=== PATIENT | female | born 1950 | race African-American/Black ===

== ENCOUNTER 2017-01-16 07:59 | Day surgery (SDC) | payer OTHER ==
[2017-01-13 12:08] VITALS: BMI 29.2
[2017-01-16 08:38] VITALS: TEMP 98.3
[2017-01-16] MEDS ORDERED: TOBRAMYCIN/DEXAMETHASONE OPHTH. OINTMENT 1 TUBE ONE ×2 (10:32→10:33)
[2017-01-16] MEDS ORDERED: LIDOCAINE 1%/EPI 1:100000 (50 ML MULTI DOSE VIAL) ONE (10:32)
[2017-01-16] MEDS ORDERED: TETRACAINE 0.5% OPHTH SOLN 2 ML BOTTLE OS ONE (10:36)
[2017-01-16] MEDS ORDERED: MIDAZOLAM HCL 2 MG/2 ML SINGLE DOSE VIAL ONE (10:47)
[2017-01-16] MEDS ORDERED: POVIDONE-IODINE 5% OPHTHALMIC PREP 30 ML SOLUTION OS ONE (10:50)
[2017-01-16] MEDS ORDERED: BSS (NA/CA/MG/K) BALANCED SALT SOLUTION OPHTH SOLN 15 ML BOTTLE OS ONE (10:55)
[2017-01-16] MEDS ORDERED: LIDOCAINE 1%/EPI 1:100000 (50 ML MULTI DOSE VIAL) INF ONE (10:55)
[2017-01-16] MEDS ORDERED: TOBRAMYCIN/DEXAMETHASONE OPHTH. OINTMENT 1 TUBE OS ONE (11:08)
[2017-01-16 13:46] VITALS: BP 121/82; PULSE 83
--- NOTE | 2017-01-16 20:06 | OP ---
DATE OF OPERATION: DATE OF DICTATION: 01/16/2017 SURGEON: Sheila Morgan M.D. PREOPERATIVE DIAGNOSIS: Chalazion left upper lid. POSTOPERATIVE DIAGNOSIS: Chalazion left upper lid. ANESTHESIA: Local. PROCEDURE: Pterygium incision and curettage with biopsy on the left upper lid. DESCRIPTION: Patient was brought to the operating room after placing tetracaine eyedrops. The microscope was swung into position after marking the chalazion from the conjunctival surface, 0.5 mL of 2% lidocaine with epinephrine was injected into the upper lid and pterygium clamp was placed on the large pterygium, and 11 blade was used to perform cruciate incision, and curettage to remove the rest of the material from the cyst and the cyst wall was excised and sent for biopsy. Hemostasis was achieved with pressure, and the eye had Tobradex eye ointment placed on the conjunctival sac, and patient was then transferred to the recovery room in a stable condition having tolerated the procedure well. SHEILA MORGAN M.D. [id number]
--- NOTE | 2017-01-17 12:35 | PATH ---
Surgical Pathology Report Patient Name: HO LARSON [facility]. Rec. #: [id number] /Age/Gender: 1950 (Age: 66) / F Account: [id number] Location: [facility] SURGICAL Taken: 01/16/2017 Received: 01/16/2017 Reported: 01/17/2017 Physicians: Leila Romero M.D. Specimen(s) Received CHALAZION Clinical History Chalazion left upper eyelid Final Diagnosis SOFT TISSUE, LEFT UPPER EYELID, EXCISION: FIBROCONNECTIVE TISSUE WITH ACUTE AND CHRONIC INFLAMMATION WITH ASSOCIATED HISTIOCYTES CONSISTENT WITH CHALAZION. Electronically Signed Wilfrido Sanches M.D. Gross Description Received in formalin labeled "chalazion left upper lid," are 3 shaw soft tissue fragments averaging less than 0.1 cm in greatest dimension. The specimens are submitted in toto in one cassette. /01/16/201701/16/2017
== END 2017-01-16 12:30 | disposition home or self-care (01) ==
LOC: JASU-SURG 07:59
PROVIDERS: ATTEND Ophthalmology
PROC: 08BP0ZZ Excision of Left Upper Eyelid, Open Approach (ICD-10-PCS; principal; 2017-01-16 11:00)
DX: H00.14 Chalazion left upper eyelid (principal)
CPT/HCPCS: 88304-TC

== ENCOUNTER 2018-01-01 07:04 | Day surgery (SDC) | payer OTHER ==
[2017-12-29 09:11] VITALS: BMI 29.2
[~2018-01-01 07:04] MED LIST: BSS (NA/CA/MG/K) BALANCED SALT SOLUTION OPHTH SOLN 15 ML BOTTLE OS ONE; CHONDROITIN SU A/HYALUR SOD 1 KIT IO ONE; EPINEPHrine/PF 1 MG/1 ML (1:1,000) AMPULE SQ ONE; LIDOCAINE HCL 1% PRESERVATIVE FREE - 30ML VIAL IO ONE; POVIDONE-IODINE 5% OPHTHALMIC PREP 30 ML SOLUTION OS ONE; TETRACAINE 0.5% OPHTH SOLN 2 ML BOTTLE OS ONE; TOBRA 0.3%/DEXAMETH 0.1% OPHTHALMIC SUSP 2.5 ML BTL OS ONE
[2018-01-01] MEDS ORDERED: FLURBIPROFEN 0.03% OPHTH SOLN 2.5 ML BOTTLE OS SCH (07:15)
[2018-01-01] MEDS ORDERED: PHENYLEPHRINE 2.5% OPHTH SOLN 15 ML BOTTLE OS SCH (07:15)
[2018-01-01] MEDS ORDERED: MOXIFLOXACIN HCL 0.5% OPHTHALMIC 3 ML BOTTLE OS SCH (07:15)
[2018-01-01] MEDS ORDERED: CYCLOPENTOLATE HCL 1% OPHTH SOLN 2 ML BOTTLE OS SCH (07:15)
[2018-01-01] MEDS ORDERED: FLURBIPROFEN 0.03% OPHTH SOLN 2.5 ML BOTTLE ONE (07:19)
[2018-01-01] MEDS ORDERED: CYCLOPENTOLATE HCL 1% OPHTH SOLN 2 ML BOTTLE ONE (07:19)
[2018-01-01] MEDS ORDERED: TROPICAMIDE 0.5% OPHTHALMIC SOLN 15 ML BOTTLE ONE (07:19)
[2018-01-01] MEDS ORDERED: MOXIFLOXACIN HCL 0.5% OPHTHALMIC 3 ML BOTTLE ONE (07:19)
[2018-01-01] MEDS ORDERED: PHENYLEPHRINE 2.5% OPHTH SOLN 15 ML BOTTLE ONE (07:19)
[2018-01-01] MEDS ORDERED: EPINEPHrine/PF 1 MG/1 ML (1:1,000) AMPULE ONE (07:24)
[2018-01-01] MEDS ORDERED: TOBRA 0.3%/DEXAMETH 0.1% OPHTHALMIC SUSP 2.5 ML BTL ONE (07:24)
[2018-01-01] MEDS ORDERED: TETRACAINE 0.5% OPHTH SOLN 2 ML BOTTLE ONE (07:24)
[2018-01-01] MEDS ORDERED: LIDOCAINE HCL/PF 1% SDV 5ML VIAL ONE (07:24)
[2018-01-01] MEDS ORDERED: POVIDONE-IODINE 5% OPHTHALMIC PREP 30 ML SOLUTION ONE (07:25)
[2018-01-01 07:39] VITALS: TEMP 98.7
[2018-01-01] MEDS ORDERED: TROPICAMIDE 1% OPHTH SOLN 15 ML BOTTLE OS SCH (08:00)
[2018-01-01] MEDS ORDERED: MIDAZOLAM HCL 2 MG/2 ML SINGLE DOSE VIAL ONE (08:13)
[2018-01-01] MEDS ORDERED: TETRACAINE 0.5% OPHTH SOLN 2 ML BOTTLE OS ONE (08:29)
[2018-01-01] MEDS ORDERED: POVIDONE-IODINE 5% OPHTHALMIC PREP 30 ML SOLUTION OS ONE (08:31)
[2018-01-01] MEDS ORDERED: BSS (NA/CA/MG/K) BALANCED SALT SOLUTION OPHTH SOLN 15 ML BOTTLE OS ONE (08:42)
[2018-01-01] MEDS ORDERED: LIDOCAINE HCL 1% PRESERVATIVE FREE - 30ML VIAL IO ONE (08:42)
[2018-01-01] MEDS ORDERED: CHONDROITIN SU A/HYALUR SOD 1 KIT IO ONE (08:42)
[2018-01-01] MEDS ORDERED: EPINEPHrine/PF 1 MG/1 ML (1:1,000) AMPULE SQ ONE (08:49)
[2018-01-01] MEDS ORDERED: TOBRA 0.3%/DEXAMETH 0.1% OPHTHALMIC SUSP 2.5 ML BTL OS ONE (09:04)
[2018-01-01 11:08] VITALS: BP 144/79; PULSE 89
--- NOTE | 2018-01-01 14:01 | OP ---
DATE OF OPERATION: SPECIALIST: Leila Romero MD PREOPERATIVE DIAGNOSIS: Cataract, left eye. POSTOPERATIVE DIAGNOSIS: Cataract, left eye. PROCEDURE: Phacoemulsification of cataract, left eye with in bag placement SN60WF 20.5 diopter IOL. ANESTHESIA: Local. DESCRIPTION OF PROCEDURE: The patient was brought to the operating room, and the left eye was prepped and draped in the usual sterile fashion for ophthalmic surgery. The microscope was swung into position after placing tetracaine eye drops. The 2.75 keratome was used to enter the anterior chamber at approximately the 2 o'clock position after filling the chamber with 0.5 mL of preservative-free lidocaine and Viscoat. Access entry port was made at approximately 4 o'clock position. Cystotome and Utrata forceps were used to make a continuous circular capsulorrhexis. BSS was used to perform hyrodissection and hydrodelineation of the lens nucleus, which was rotated freely. Phacoemulsification was carried out in a mdjzuo-qwe-[id number] technique. IA was used to remove residual cortical material from the capsular bag, which was found to be intact and which was injected SN60WF diopter IOL. The IA was used to remove viscoelastic from the capsular bag and the corneal wounds were hydrated with BSS, which were found to be watertight. Contact lens soaked in Tobradex solution for approximately 10 minutes was then draped on the cornea. The eye was patched and shielded and patient was transferred to the recovery room in a stable condition having tolerated the procedure well. Nathalia [id number]
== END 2018-01-01 11:32 | disposition home or self-care (01) ==
LOC: JASU-SURG 07:04
PROVIDERS: ATTEND Ophthalmology
PROC: 08RK3JZ Replacement of Left Lens with Synthetic Substitute, Percutaneous Approach (ICD-10-PCS; principal; 2018-01-01 08:00)
DX: H26.9 Unspecified cataract (principal)
CPT/HCPCS: 82962

== ENCOUNTER 2018-02-05 06:36 | Day surgery (SDC) | payer OTHER ==
[2018-02-02 10:57] VITALS: BMI 29.2
[~2018-02-05 06:36] MED LIST changes: +BSS (NA/CA/MG/K) BALANCED SALT SOLUTION OPHTH SOLN 15 ML BOTTLE IO ONE; -BSS (NA/CA/MG/K) BALANCED SALT SOLUTION OPHTH SOLN 15 ML BOTTLE OS ONE; -EPINEPHrine/PF 1 MG/1 ML (1:1,000) AMPULE SQ ONE; +POVIDONE-IODINE 5% OPHTHALMIC PREP 30 ML SOLUTION OD ONE; -POVIDONE-IODINE 5% OPHTHALMIC PREP 30 ML SOLUTION OS ONE; -TETRACAINE 0.5% OPHTH SOLN 2 ML BOTTLE OS ONE; +TETRACAINE 0.5% OPHTH SOLN 2 ML BOTTLE TP ONE; +TOBRA 0.3%/DEXAMETH 0.1% OPHTHALMIC SUSP 2.5 ML BTL OP ONE; -TOBRA 0.3%/DEXAMETH 0.1% OPHTHALMIC SUSP 2.5 ML BTL OS ONE
[2018-02-05] MEDS ORDERED: PHENYLEPHRINE 2.5% OPHTH SOLN 15 ML BOTTLE ONE (07:10)
[2018-02-05] MEDS ORDERED: MOXIFLOXACIN HCL 0.5% OPHTHALMIC 3 ML BOTTLE ONE (07:10)
[2018-02-05] MEDS ORDERED: FLURBIPROFEN 0.03% OPHTH SOLN 2.5 ML BOTTLE ONE (07:10)
[2018-02-05] MEDS ORDERED: CYCLOPENTOLATE HCL 1% OPHTH SOLN 2 ML BOTTLE ONE (07:10)
[2018-02-05] MEDS ORDERED: TROPICAMIDE 1% OPHTH SOLN 15 ML BOTTLE ONE (07:11)
[2018-02-05 07:23] VITALS: TEMP 98.6
[2018-02-05] MEDS ORDERED: CYCLOPENTOLATE HCL 1% OPHTH SOLN 2 ML BOTTLE OD ONE ×3 (07:25→07:35)
[2018-02-05] MEDS ORDERED: PHENYLEPHRINE 2.5% OPHTH SOLN 15 ML BOTTLE OD ONE ×3 (07:25→07:35)
[2018-02-05] MEDS ORDERED: MOXIFLOXACIN HCL 0.5% OPHTHALMIC 3 ML BOTTLE OD ONE ×3 (07:25→07:35)
[2018-02-05] MEDS ORDERED: FLURBIPROFEN 0.03% OPHTH SOLN 2.5 ML BOTTLE OD ONE ×3 (07:25→07:35)
[2018-02-05] MEDS ORDERED: TROPICAMIDE 1% OPHTH SOLN 15 ML BOTTLE OD ONE ×3 (07:25→07:35)
[2018-02-05] MEDS ORDERED: LIDOCAINE HCL/PF 1% SDV 5ML VIAL ONE (07:34)
[2018-02-05] MEDS ORDERED: TETRACAINE 0.5% OPHTH SOLN 2 ML BOTTLE ONE (07:34)
[2018-02-05] MEDS ORDERED: TOBRA 0.3%/DEXAMETH 0.1% OPHTHALMIC SUSP 2.5 ML BTL ONE (07:34)
[2018-02-05] MEDS ORDERED: POVIDONE-IODINE 5% OPHTHALMIC PREP 30 ML SOLUTION ONE (07:35)
[2018-02-05] MEDS ORDERED: PROPOFOL 20 ML ONE ×2 (07:37→07:38)
[2018-02-05] MEDS ORDERED: MIDAZOLAM HCL 2 MG/2 ML SINGLE DOSE VIAL ONE (07:37)
[2018-02-05] MEDS ORDERED: SUCCINYLCHOLINE CHLORIDE 200 MG/10 ML VIAL ONE (07:38)
[2018-02-05] MEDS ORDERED: ePHEDrine SULFATE 50 MG/1 ML AMPULE ONE (07:38)
[2018-02-05] MEDS ORDERED: EPINEPHrine/PF 1 MG/1 ML (1:1,000) AMPULE ONE (07:44)
[2018-02-05] MEDS ORDERED: CHONDROITIN SU A/HYALUR SOD 1 KIT ONE (07:44)
[2018-02-05] MEDS ORDERED: TETRACAINE 0.5% OPHTH SOLN 2 ML BOTTLE TP ONE (08:28)
[2018-02-05] MEDS ORDERED: POVIDONE-IODINE 5% OPHTHALMIC PREP 30 ML SOLUTION OD ONE (08:30)
[2018-02-05] MEDS ORDERED: BSS (NA/CA/MG/K) BALANCED SALT SOLUTION OPHTH SOLN 15 ML BOTTLE IO ONE (08:39)
[2018-02-05] MEDS ORDERED: LIDOCAINE HCL 1% PRESERVATIVE FREE - 30ML VIAL IO ONE (08:47)
[2018-02-05] MEDS ORDERED: CHONDROITIN SU A/HYALUR SOD 1 KIT IO ONE (08:49)
[2018-02-05] MEDS ORDERED: TOBRA 0.3%/DEXAMETH 0.1% OPHTHALMIC SUSP 2.5 ML BTL OP ONE (09:09)
[2018-02-05 10:14] VITALS: BP 139/80; PULSE 90
--- NOTE | 2018-02-05 14:09 | OP ---
DATE OF OPERATION: 02/05/2018 SURGEON: Leila Roemro MD PREOPERATIVE DIAGNOSIS: Cataract, right eye. POSTOPERATIVE DIAGNOSIS: Cataract, right eye. PROCEDURE: Phacoemulsification of cataract right eye with in bag placement of SN60WF with 20 diopter intraocular lens. ANESTHESIA: Local. DESCRIPTION OF PROCEDURE: The patient was brought to the operating room, and the right eye was prepped and draped in the usual sterile fashion for ophthalmic surgery after placing tetracaine eye drops. The microscope was swung into position, and a 2.75 keratome was used to enter the anterior chamber at approximately 10 o'clock position with an accessory port made at 2 o'clock position after filling the anterior chamber with 0.5 mL of preservative-free lidocaine and viscoelastic. Cystotome and Utrata forceps were used to make a continuous circular capsulorrhexis. Phacoemulsification was carried out in a txxjmz-qzj-ysedeif technique after performing hyrodissection and hydrodelineation with the BSS, and the nucleus was rotated freely. The capsular bag was found to be intact after removing the residual cortical material, which was filled with Amvisc and injected SN60WF 20.0 diopter IOL. The viscoelastic was removed with IA, and the lip of the corneal wounds were hydrated with BSS, which was found to be watertight. Contact lens soaked in Tobradex solution for approximately 10 minutes was then draped on the eye cornea. The eye was patched and shielded. The patient was transferred to the recovery room in a stable condition having tolerated the procedure well. Nathalia [id number]
== END 2018-02-05 10:17 | disposition home or self-care (01) ==
LOC: JASU-SURG 06:36
PROVIDERS: ATTEND Ophthalmology
PROC: 08RJ3JZ Replacement of Right Lens with Synthetic Substitute, Percutaneous Approach (ICD-10-PCS; principal; 2018-02-05 08:00)
DX: H26.9 Unspecified cataract (principal); I10 Essential (primary) hypertension; E11.9 Type 2 diabetes mellitus without complications
CPT/HCPCS: 82962